=== PATIENT | male | born 1960 | race Caucasian/White ===

== ENCOUNTER 2023-11-06 11:34 | Inpatient (IN) | payer OTHER ==
--- NOTE | 2023-11-06 12:16 | ED ---
General Adult HPI - General Source: patient, EMS, RN notes reviewed Mode of arrival: EMS Limitations: no limitations <Chelsea Funez - Last Filed: 11/06/23 12:58> - General Source: patient, RN notes reviewed Limitations: no limitations <Levy Brar - Last Filed: 11/06/23 16:09> - General Chief complaint: Abdominal Pain Stated complaint: failure to thrive Time Seen by Provider: 11/06/23 12:05 - History of Present Illness Initial comments: Quick Note: This is a 63-year-old male who presents to the emergency department for weakness and failure to thrive. Patient is currently by himself when trying to have a discussion with him and is a very poor historian. When asked why he is here, he states "I cannot walk". Nursing staff reports patient has not been taking medications and has problems with his colostomy bag. (Chelsea Funez) Patient is a 63-year-old male present to emergency department with concerns with weakness. Patient states symptoms have progressed over the past few weeks. Patient states that he is no longer able to walk or take care of himself. Patient does admit to being an alcoholic. Patient still smokes. (Levy Brar) - Related Data Allergies Allergy/AdvReac Type Severity Reaction Status Date / Time No Known Allergies Allergy Verified 11/06/23 11:41 Review of Systems ROS Other: All systems not noted in ROS Statement are negative. <Chelsea Funez - Last Filed: 11/06/23 12:58> ROS Other: All systems not noted in ROS Statement are negative. Constitutional: Denies: fever Eyes: Denies: eye pain ENT: Denies: ear pain Respiratory: Denies: dyspnea Cardiovascular: Denies: chest pain Endocrine: Reports: fatigue Gastrointestinal: Denies: abdominal pain Neurological: Reports: as per HPI, weakness <Levy Brar - Last Filed: 11/06/23 16:09> ROS Statement: Those systems with pertinent positive or pertinent negative responses have been documented in the HPI. Past Medical History Past Medical History: Unable to Obtain Additional Past Medical History / Comment(s): stopped taking all medication History of Any Multi-Drug Resistant Organisms: None Reported Past Surgical History: Unable to Obtain Additional Past Surgical History / Comment(s): colostomy Past Psychological History: No Psychological Hx Reported Smoking Status: Current every day smoker Past Alcohol Use History: Daily, Heavy Past Drug Use History: None Reported <Chelsea Funez - Last Filed: 11/06/23 12:58> General Exam Limitations: no limitations <Chelsea Funez - Last Filed: 11/06/23 12:58> Limitations: no limitations General appearance: alert, in no apparent distress Head exam: Present: normocephalic Eye exam: Present: normal appearance, PERRL, EOMI ENT exam: Present: normal oropharynx Neck exam: Present: normal inspection Respiratory exam: Present: normal lung sounds bilaterally Cardiovascular Exam: Present: regular rate, normal rhythm GI/Abdominal exam: Present: soft. Absent: tenderness Extremities exam: Present: normal inspection Neurological exam: Present: alert Expanded Neurological exam: Present: protecting the airway Patient oriented to: Present: person. Absent: place, time Speech: Present: fluid speech Motor strength exam: RUE: 5, LUE: 5, RLE: 4, LLE: 4 Eye Response: (4) open spontaneously Motor Response: (6) obeys commands Verbal Response: (4) confused conversation Psychiatric exam: Present: normal affect, normal mood Skin exam: Present: normal color <Levy Brar Last Filed: 11/06/23 16:09> - General Exam Comments Initial Comments: Visual Physical Exam Vital signs reviewed General: Well-appearing, nontoxic, no acute distress. Head: Normocephalic, atraumatic Eyes: PERRLA, EOMI ENT: Airway patent Chest: Nonlabored breathing Skin: No visual rash, normal skin tone Neuro: Alert and oriented 3 Musculoskeletal: No gross abnormalities (Chelsea Funez) Course Vital Signs 11/06/23 11:36 Temperature 98.4 F Pulse Rate 102 H Respiratory 18 Rate Blood Pressure 125/72 O2 Sat by Pulse 92 L Oximetry EKG Findings - EKG Results: EKG: interpreted by ERMD (Left axis inferior and septal Q waves.), sinus rhythm, normal ST/T <Levy Brar Filed: 11/06/23 16:09> Medical Decision Making <Chelsea Funez - Last Filed: 11/06/23 12:58> - Lab Data Result diagrams: 11/06/23 13:21 11/06/23 14:44 <Levy Brar Filed: 11/06/23 16:09> - Medical Decision Making I performed the QuickNote portion of this chart. Signed Chelsea Funez PA-C. (Chelsea Funez) Was pt. sent in by a medical professional or institution ([facility] [address], [facility], urgent care, hospital, or snf...) When possible be specific @ -No Did you speak to anyone other than the patient for history (EMS, parent, family, police, friend...)? What history was obtained from this source @ -No Did you review nursing and triage notes (agree or disagree)? Why? @ -I reviewed and agree with nursing and triage notes Were old charts reviewed (outside hosp., previous admission, EMS record, old EKG, old radiological studies, urgent care reports/EKG's, snf records)? Report findings @ -No old charts were reviewed Differential Diagnosis (chest pain, altered mental status, abdominal pain women, abdominal pain men, vaginal bleeding, weakness, fever, dyspnea, syncope, headache, dizziness, GI bleed, back pain, seizure, CVA, palpatations, mental health, musculoskeletal)? @ -Differential Weakness: Hypoglycemia, shock, sepsis, hyponatremia, anemia, infection, [place], ETOH, adverse medicine reaction, overdose, stroke, this is not meant to be an all-inclusive list. EKG interpreted by me (3pts min.). @ -As above X-rays interpreted by me (1pt min.). @ -Chest x-ray with possible tiny left pleural effusion CT interpreted by me (1pt min.). @ -CT brain without acute abnormality U/S interpreted by me (1pt. min.). @ -None done What testing was considered but not performed or refused? (CT, X-rays, U/S, labs)? Why? @ -None What meds were considered but not given or refused? Why? @ -None Did you discuss the management of the patient with other professionals (professionals i.e. [facility] [address], [facility], lab, RT, psych nurse, social security benefits interviewer, microarray operations vice president, teacher, transport corps officer, case assistant)? Give summary @ -Case was discussed with Dr. Sellers who will admit covering Dr. Eagle Was smoking cessation discussed for >3mins.? @ -No Was critical care preformed (if so, how long)? @ -No Were there social determinants of health that impacted care today? How? (Homelessness, low income, unemployed, alcoholism, drug addiction, transportation, low edu. Level, literacy, decrease access to med. care, long-term, rehab)? @ -No Was there de-escalation of care discussed even if they declined (Discuss DNR or withdrawal of care, Hospice)? DNR status @ -No What co-morbidities impacted this encounter? (DM, HTN, Smoking, COPD, CAD, Cancer, CVA, ARF, Chemo, Hep., AIDS, mental health diagnosis, sleep apnea, morbid obesity)? @ -History of alcoholism Was patient admitted / discharged? Hospital course, mention meds given and route, prescriptions, significant lab abnormalities, going to OR and other per tinent info. @ -Patient presents with generalized weakness and inability to walk and take care of himself. Patient has hypomagnesemia. Patient will be admitted. Admission orders written. Undiagnosed new problem with uncertain prognosis? @ -No Drug Therapy requiring intensive monitoring for toxicity (Heparin, Nitro, Insulin, Cardizem)? @ -No Were any procedures done? @ -No Diagnosis/symptom? @ -Weakness, hypomagnesemia Acute, or Chronic, or Acute on Chronic? @ -Acute, acute Uncomplicated (without systemic symptoms) or Complicated (systemic symptoms)? @ -Default Side effects of treatment? @ -No Exacerbation, Progression, or Severe Exacerbation? @ -No Poses a threat to life or bodily function? How? (Chest pain, [place], [place], pneumonia, PE, COPD, DKA, ARF, appy, cholecystitis, CVA, Diverticulitis, Homicidal, Suicidal, threat to staff... and all critical care pts) @ -No (Levy Brar) - Lab Data Lab Results 11/06/23 11/06/23 11/06/23 Range/Units 13:21 13:21 13:21 WBC 6.0 (3.8-10.6) k/uL RBC 4.47 (4.30-5.90) m/uL Hgb 14.4 (13.0-17.5) gm/dL Hct 46.8 (39.0-53.0) % MCV 104.8 H (80.0-100.0) fL MCH 32.2 (25.0-35.0) pg MCHC 30.8 L (31.0-37.0) g/dL RDW 17.3 H (11.5-15.5) % Plt Count 165 (150-450) k/uL MPV 8.4 Neutrophils % 59 % Lymphocytes % 28 % Monocytes % 7 % Eosinophils % 2 % Basophils % 1 % Neutrophils # 3.6 (1.3-7.7) k/uL Lymphocytes # 1.7 (1.0-4.8) k/uL Monocytes # 0.4 (0-1.0) k/uL Eosinophils # 0.1 (0-0.7) k/uL Basophils # 0.0 (0-0.2) k/uL Hypochromasia Marked Poikilocytosis Slight Anisocytosis Slight Macrocytosis Moderate PT 13.0 H (10.0-12.5) sec INR 1.2 H (<1.2) APTT 29.0 (22.0-30.0) sec Sodium (137-145) mmol/L Potassium (3.5-5.1) mmol/L Chloride (98-107) mmol/L Carbon Dioxide (22-30) mmol/L Anion Gap mmol/L BUN (9-20) mg/dL Creatinine (0.66-1.25) mg/dL Est GFR (CKD-EPI)AfAm (>60 ml/min/1.73 sqM) Est GFR (CKD-EPI)NonAf (>60 ml/min/1.73 sqM) Glucose (74-99) mg/dL Plasma Lactic Acid Simone 1.7 (0.7-2.0) mmol/L Calcium (8.4-10.2) mg/dL Magnesium (1.6-2.3) mg/dL Total Bilirubin (0.2-1.3) mg/dL AST (17-59) U/L ALT (4-49) U/L Alkaline Phosphatase (38-126) U/L Total Protein (6.3-8.2) g/dL Albumin (3.5-5.0) g/dL Urine Color Urine Appearance (Clear) Urine pH (5.0-8.0) Ur Specific [place] (1.001-1.035) Urine Protein (Negative) Urine Glucose (UA) (Negative) Urine Ketones (Negative) Urine Blood (Negative) Urine Nitrite (Negative) Urine Bilirubin (Negative) Urine Urobilinogen (<2.0) mg/dL Ur Leukocyte Esterase (Negative) Urine WBC (0-5) /hpf Ur Squamous Epith Cells (0-4) /hpf Urine Bacteria (None) /hpf 11/06/23 11/06/23 Range/Units 13:55 14:44 WBC (3.8-10.6) k/uL RBC (4.30-5.90) m/uL Hgb (13.0-17.5) gm/dL Hct (39.0-53.0) % MCV (80.0-100.0) fL MCH (25.0-35.0) pg MCHC (31.0-37.0) g/dL RDW (11.5-15.5) % Plt Count (150-450) k/uL MPV Neutrophils % % Lymphocytes % % Monocytes % % Eosinophils % % Basophils % % Neutrophils # (1.3-7.7) k/uL Lymphocytes # (1.0-4.8) k/uL Monocytes # (0-1.0) k/uL Eosinophils # (0-0.7) k/uL Basophils # (0-0.2) k/uL Hypochromasia Poikilocytosis Anisocytosis Macrocytosis PT (10.0-12.5) sec INR (<1.2) APTT (22.0-30.0) sec Sodium 142 (137-145) mmol/L Potassium 3.3 L (3.5-5.1) mmol/L Chloride 105 (98-107) mmol/L Carbon Dioxide 34 H (22-30) mmol/L Anion Gap 3 mmol/L BUN 17 (9-20) mg/dL Creatinine 0.51 L (0.66-1.25) mg/dL Est GFR (CKD-EPI)AfAm >90 (>60 ml/min/1.73 sqM) Est GFR (CKD-EPI)NonAf >90 (>60 ml/min/1.73 sqM) Glucose 77 (74-99) mg/dL Plasma Lactic Acid Simone (0.7-2.0) mmol/L Calcium 8.1 L (8.4-10.2) mg/dL Magnesium 0.9 L* (1.6-2.3) mg/dL Total Bilirubin 1.0 (0.2-1.3) mg/dL AST 69 H (17-59) U/L ALT 24 (4-49) U/L Alkaline Phosphatase 130 H (38-126) U/L Total Protein 6.6 (6.3-8.2) g/dL Albumin 3.0 L (3.5-5.0) g/dL Urine Color Light Yellow Urine Appearance Cloudy (Clear) Urine pH 6.0 (5.0-8.0) Ur Specific [place] 1.013 (1.001-1.035) Urine Protein Trace H (Negative) Urine Glucose (UA) Negative (Negative) Urine Ketones Negative (Negative) Urine Blood Negative (Negative) Urine Nitrite Positive (Negative) Urine Bilirubin Negative (Negative) Urine Urobilinogen <2.0 (<2.0) mg/dL Ur Leukocyte Esterase Moderate H (Negative) Urine WBC 13 H (0-5) /hpf Ur Squamous Epith Cells 2 (0-4) /hpf Urine Bacteria Rare H (None) /hpf Disposition <Chelsea Funez - Last Filed: 11/06/23 12:58> Is patient prescribed a controlled substance at d/c from ED?: No Time of Disposition: 16:09 <Levy Brar - Last Filed: 11/06/23 16:09> Clinical Impression: Weakness, Hypomagnesemia Disposition: ADMITTED IP TO THIS HOSP Referrals: Zackary Eagle MD [Primary Care Provider] - 1-2 days
[2023-11-06 13:56] LABS: Anisocytosis Slight; Basophils % (A) 1 %; Eosinophils # (A) 0.1 k/uL (0-0.7); Eosinophils % (A) 2 %; HCT 46.8 % (39.0-53.0); HGB 14.4 gm/dL (13.0-17.5); Hypochromasia Marked; Lymphocytes # (A) 1.7 k/uL (1.0-4.8); Lymphocytes % (A) 28 %; MCH 32.2 pg (25.0-35.0); MCHC 30.8 g/dL (31.0-37.0); MCV 104.8 fL (80.0-100.0); Macrocytosis Moderate; Mean Platelet Volume 8.4; Monocytes # (A) 0.4 k/uL (0-1.0); Monocytes % (A) 7 %; Neutrophils # (A) 3.6 k/uL (1.3-7.7); Neutrophils % (A) 59 %; Platelet Count 165 k/uL (150-450); Poikilocytosis Slight; RBC 4.47 m/uL (4.30-5.90); RDW 17.3 % (11.5-15.5)
[2023-11-06 14:12] LABS: Appearance,Urine Cloudy (Clear); Bacteria,Urine Rare /hpf; Bilirubin,Urine Negative (Negative); Blood,Urine Negative (Negative); Color,Urine Light Yellow; Glucose,Urine (UA) Negative (Negative); Ketones,Urine Negative (Negative); Leukocyte Esterase,Urine Moderate (Negative); Nitrite,Urine Positive (Negative); Protein,Urine Trace (Negative); Specific Gravity,Urine 1.013 (1.001-1.035); Squamous Epithelial Cell,Urine 2 /hpf (0-4); Urobilinogen,Urine <2.0 mg/dL (<2.0); WBC,Urine 13 /hpf (0-5)
[2023-11-06 14:20] LABS: INR 1.2 (<1.2)
[2023-11-06 15:00] LABS: ALT 24 U/L (4-49); AST 69 U/L (17-59); African American GFR (CKD) >90 (>60 ml/min/1.73 sqM); Alkaline Phosphatase 130 U/L (38-126); Anion Gap 3 mmol/L; Blood Urea Nitrogen 17 mg/dL (9-20); Calcium 8.1 mg/dL (8.4-10.2); Carbon Dioxide 34 mmol/L (22-30); Chloride 105 mmol/L (98-107); Glucose 77 mg/dL (74-99); Non-African American GFR(CKD) >90 (>60 ml/min/1.73 sqM); Potassium 3.3 mmol/L (3.5-5.1); Sodium 142 mmol/L (137-145); Total Protein 6.6 g/dL (6.3-8.2)
[2023-11-06 15:15] LABS: Magnesium 0.9 mg/dL (1.6-2.3)
--- NOTE | 2023-11-06 15:34 | CT ---
EXAMINATION TYPE: CT brain wo con DATE OF EXAM: 11/06/2023 COMPARISON: None INDICATION: Weakness, failure to thrive DLP: 1185.4 mGycm, Automated exposure control for dose reduction was used. CONTRAST: None CT of the brain is performed utilizing 3 mm thick sections through the posterior fossa and 3 mm thick sections through the remaining calvarium. Study is performed within 24 hours of arrival to the hosp ital. No abnormal hyperdensity is present to suggest an acute intracranial hemorrhage. No mass lesion is evident. No acute infarcts are evident. Ventricles and sulci are appropriate for the patient age. Paranasal sinuses and mastoid air cells within the [id number] are clear. IMPRESSION: 1. No acute intracranial process. Follow up MRI can be performed as clinically indicated. [facility], , 11/06/2023 3:32 PM
--- NOTE | 2023-11-06 15:45 | XR ---
EXAMINATION TYPE: XR chest 2V DATE OF EXAM: 11/06/2023 COMPARISON: None INDICATION: Weakness TECHNIQUE: Frontal and lateral views of the chest are obtained. FINDINGS: The heart size is normal. The pulmonary vasculature is normal. Small left pleural effusion is present. Lungs otherwise appear clear.. IMPRESSION: 1. Small left posterior pleural effusion [facility], Workstation: [facility], 11/06/2023 3:43 PM
[2023-11-06] MEDS: MAGNESIUM OXIDE 400 MG TAB PO STA (15:53)
[2023-11-06] MEDS: MAGNESIUM SULFATE-D5W PMX 1 GM in DEXTROSE/WATER 1 100ML.BAG IVPB SCH ×2 (15:53→19:46)
[2023-11-06] MEDS ORDERED: LORazepam 1 MG TAB PO PRN ×2 (16:06)
[2023-11-06] MEDS ORDERED: NALOXONE 0.4 MG/ML 1 ML VIAL IV PRN (16:09)
[2023-11-06] MEDS ORDERED: SODIUM CHLORIDE 0.9% 1,000 ML IV SCH (16:15)
--- NOTE | 2023-11-06 16:20 | P.HPIM ---
History of Present Illness H&P Date: 11/06/23 Chief Complaint: "I cannot walk" Patient is a 63-year-old male with a past medical history of ostomy that he states he has had since he was a chile and he does not know the reason as to why he has it, alcohol abuse drinks 1/5 of vodka every day who presents to the ED because he is not able to walk. Patient states that he has been getting progressively weaker over the past few months and today he was not able to walk. Patient states that his used to take care of him but she . Now his brother lives with him and helps to take care of him. Patient states that he has not taken a shower in a long time. He states he changes his ostomy by himself. Patient states that he has not seen a doctor in a long time and he also does not take any medications. Patient in the ED was found to have a potassium of 3.3, magnesium 0.9. ED ordered 2 g of magnesium sulfate. Patient then referred for admission. ROS: 10 ROS reviewed and are negative except as noted in HPI Physical exam General: [Alert and oriented, disheveled and appears malnourished and patient covered with stools]. Eye: [PERRL, EOMI, normal conjunctiva]. HENT: [Normocephalic, clear tympanic membranes, normal hearing, dry oral mucosa, no scleral icterus, no sinus tenderness]. Neck: [Supple, non-tender, no carotid bruits, no JVD, no lymphadenopathy]. Lungs: [Clear to auscultation and percussion, non-labored respiration]. Heart: [Normal rate, regular rhythm, no murmur, gallop +3 pitting edema bilateral lower extremities]. Abdomen: [Soft, non-tender, non-distended, normal bowel sounds, no masses, ostomy bag surrounded by brown-colored pasty stool]. Musculoskeletal: Bilateral lower extremity strength 3 out of 5. Neurologic: [Awake, alert, and oriented X3, CN II-XII intact]. Psychiatric: [Cooperative, flat affect]. Assessment and plan Bilateral lower extremity weakness likely due to hypomagnesemia Hypomagnesemia secondary to alcohol abuse Patient given 2 g of magnesium sulfate in the ED will order for another 4 g of magnesium sulfate PT OT consult Mild hypokalemia Potassium 3.3 will order for 40 mg of potassium chloride Alcohol abuse High risk for DTs and alcohol withdrawal Will start the patient on CIWA protocol Mildly elevated transaminitis Secondary to alcohol abuse Lower extremity edema I suspect this is due to hypoalbuminemia Encourage patient to eat more History of ostomy Patient is not sure why he has an ostomy. He states that he has had it since he was a child. DVT prophylaxis: Subcu heparin Past Medical History Past Medical History: Unable to Obtain Additional Past Medical History / Comment(s): stopped taking all medication History of Any Multi-Drug Resistant Organisms: None Reported Past Surgical History: Unable to Obtain Additional Past Surgical History / Comment(s): colostomy Past Psychological History: No Psychological Hx Reported Smoking Status: Current every day smoker Past Alcohol Use History: Daily, Heavy Past Drug Use History: None Reported Medications and Allergies Allergies Allergy/AdvReac Type Severity Reaction Status Date / Time No Known Allergies Allergy Verified 11/06/23 11:41 Physical Exam Osteopathic Statement: *. No significant issues noted on an osteopathic structural exam other than those noted in the History and Physical/Consult. Vitals: Vital Signs Temp Pulse Resp BP Pulse Ox 11/06/23 11:36 98.4 F 102 H 18 125/72 92 L Intake and Output 11/06/23 11/06/23 11/06/23 06:59 14:59 22:59 Other: Weight 81.647 kg Results CBC & Chem 7: 11/06/23 13:21 11/06/23 14:44 Labs: Abnormal Lab Results - Last 24 Hours (Table) 11/06/23 11/06/23 11/06/23 Range/Units 13:21 13:21 13:55 MCV 104.8 H (80.0-100.0) fL MCHC 30.8 L (31.0-37.0) g/dL RDW 17.3 H (11.5-15.5) % PT 13.0 H (10.0-12.5) sec INR 1.2 H (<1.2) Potassium (3.5-5.1) mmol/L Carbon Dioxide (22-30) mmol/L Creatinine (0.66-1.25) mg/dL Calcium (8.4-10.2) mg/dL Magnesium (1.6-2.3) mg/dL AST (17-59) U/L Alkaline Phosphatase (38-126) U/L Albumin (3.5-5.0) g/dL Urine Protein Trace H (Negative) Ur Leukocyte Esterase Moderate H (Negative) Urine WBC 13 H (0-5) /hpf Urine Bacteria Rare H (None) /hpf 11/06/23 Range/Units 14:44 MCV (80.0-100.0) fL MCHC (31.0-37.0) g/dL RDW (11.5-15.5) % PT (10.0-12.5) sec INR (<1.2) Potassium 3.3 L (3.5-5.1) mmol/L Carbon Dioxide 34 H (22-30) mmol/L Creatinine 0.51 L (0.66-1.25) mg/dL Calcium 8.1 L (8.4-10.2) mg/dL Magnesium 0.9 L* (1.6-2.3) mg/dL AST 69 H (17-59) U/L Alkaline Phosphatase 130 H (38-126) U/L Albumin 3.0 L (3.5-5.0) g/dL Urine Protein (Negative) Ur Leukocyte Esterase (Negative) Urine WBC (0-5) /hpf Urine Bacteria (None) /hpf
[2023-11-06] MEDS: POTASSIUM CHLORIDE ER 20 MEQ TAB.ER PO STA (17:15)
[2023-11-06] MEDS: LORazepam 1 MG TAB PO PRN (22:32)
[2023-11-07 08:31] LABS: Basophils # (A) 0.03 X 10*3/uL (0.00-0.10); Basophils % (A) 0.5 %; Eosinophils # (A) 0.08 X 10*3/uL (0.04-0.35); Eosinophils % (A) 1.3 %; HGB 12.5 g/dL (13.0-17.0); Lymphocytes # (A) 2.01 X 10*3/uL (0.90-5.00); Lymphocytes % (A) 31.8 %; MCH 31.8 pg (27.0-32.0); MCHC 31.3 g/dL (32.0-37.0); MCV 101.8 FL (80.0-97.0); Mean Platelet Volume 11.2 FL (9.5-12.2); Monocytes % (A) 9.5 %; NRBC Per 100 WBC 0 X 10*3/uL (0.00-0.01); Neutrophils # (A) 3.58 X 10*3/uL (1.80-7.70); Neutrophils % (A) 56.4 %; Platelet Count 146 X 10*3/uL (140-440); RBC 3.93 X 10*6/uL (4.40-5.60); RDW 17.9 % (11.5-14.5); WBC 6.33 X 10*3/uL (4.50-10.00)
[2023-11-07 09:05] LABS: ALT 18 U/L (10-49); AST 57 U/L (14-35); Albumin 2.7 g/dL (3.8-4.9); Albumin/Globulin Ratio 0.84 Ratio (1.60-3.17); Alkaline Phosphatase 122 U/L (41-126); Blood Urea Nitrogen 12.6 mg/dL (9.0-27.0); Calcium 8.2 mg/dL (8.7-10.3); Carbon Dioxide 29.1 mmol/L (21.6-31.8); Chloride 100 mmol/L (96-109); Globulin 3.2 g/dL (1.6-3.3); Glucose 85 mg/dL (70-110); Magnesium 1.9 mg/dL (1.5-2.4); Phosphorus 2.4 mg/dL (2.4-5.1); Potassium 3.4 mmol/L (3.5-5.5); Sodium 139 mmol/L (135-145); Total Protein 5.9 g/dL (6.2-8.2)
[2023-11-07] MEDS: ENOXAPARIN 40 MG/0.4 ML SYRINGE SQ SCH (09:07)
--- NOTE | 2023-11-07 13:33 | P.PN ---
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 Patient states that he has been getting progressively weaker over the past few months and today he was not able to walk. Patient states that his used to take care of him but she . Now his brother lives with him and helps to take care of him. Patient states that he has not taken a shower in a long time. He states he changes his ostomy by himself. Patient states that he has not seen a doctor in a long time and he al so does not take any medications. Patient in the ED was found to have a potassium of 3.3, magnesium 0.9. ED ordered 2 g of magnesium sulfate. Patient then referred for admission. Patient seen this morning. He states that he was able to stand up. He states that he is feeling stronger today compared to yesterday. Physical exam General: [Alert and oriented, disheveled and appears malnourished and patient covered with stools]. Eye: [PERRL, EOMI, normal conjunctiva]. HENT: [Normocephalic, clear tympanic membranes, normal hearing, dry oral mucosa, no scleral icterus, no sinus tenderness]. Neck: [Supple, non-tender, no carotid bruits, no JVD, no lymphadenopathy]. Lungs: [Clear to auscultation and percussion, non-labored respiration]. Heart: [Normal rate, regular rhythm, no murmur, gallop +3 pitting edema bilateral lower extremities]. Abdomen: [Soft, non-tender, non-distended, normal bowel sounds, no masses, ostomy bag surrounded by brown-colored pasty stool]. Musculoskeletal: Bilateral lower extremity strength 3 out of 5. Neurologic: [Awake, alert, and oriented X3, CN II-XII intact]. Psychiatric: [Cooperative, flat affect]. Assessment and plan Bilateral lower extremity weakness likely due to hypomagnesemia Hypomagnesemia secondary to alcohol abuse Improving after repletion of the magnesium sulfate Will give another 2 g of magnesium sulfate PT OT consult Mild hypokalemia Potassium this morning 3.4 will give another 40 mg of potassium chloride Alcohol abuse High risk for DTs and alcohol withdrawal Will start the patient on CIWA protocol Patient only required 2 mg of Ativan in the past 24 hours No signs of withdrawal this morning Mildly elevated transaminitis Secondary to alcohol abuse Improving Lower extremity edema I suspect this is due to hypoalbuminemia Encourage patient to eat more History of ostomy Concern for ostomy prolapse Will consult general surgery DVT prophylaxis: Subcu heparin Objective - Vital Signs Vital signs: Vital Signs Temp 98.7 F 11/07/23 07:50 Pulse 104 H 11/07/23 11:58 Resp 18 11/07/23 11:58 BP 119/69 11/07/23 07:50 Pulse Ox 91 L 11/07/23 07:50 FiO2 Intake & Output 11/06/23 11/07/23 11/07/23 18:59 06:59 18:59 Weight 81.647 kg 81.647 kg Other: Voiding Method Urinal # Voids 3 - Labs CBC & Chem 7: 11/07/23 03:27 11/07/23 03:27 Labs: Abnormal Lab Results - Last 24 Hours (Table) 11/06/23 11/06/23 11/06/23 Range/Units 13:21 13:21 13:55 RBC (4.40-5.60) X 10*6/uL Hgb (13.0-17.0) g/dL MCV 104.8 H (80.0-100.0) fL MCHC 30.8 L (31.0-37.0) g/dL RDW 17.3 H (11.5-15.5) % PT 13.0 H (10.0-12.5) sec INR 1.2 H (<1.2) Potassium (3.5-5.1) mmol/L Carbon Dioxide (22-30) mmol/L Creatinine (0.66-1.25) mg/dL BUN/Creatinine Ratio (12.00-20.00) Ratio Calcium (8.4-10.2) mg/dL Magnesium (1.6-2.3) mg/dL AST (17-59) U/L Alkaline Phosphatase (38-126) U/L Total Protein (6.2-8.2) g/dL Albumin (3.5-5.0) g/dL Albumin/Globulin Ratio (1.60-3.17) Ratio Urine Protein Trace H (Negative) Ur Leukocyte Esterase Moderate H (Negative) Urine WBC 13 H (0-5) /hpf Urine Bacteria Rare H (None) /hpf 11/06/23 11/07/23 11/07/23 Range/Units 14:44 03:27 03:27 RBC 3.93 L (4.40-5.60) X 10*6/uL Hgb 12.5 L (13.0-17.0) g/dL MCV 101.8 H (80.0-100.0) fL MCHC 31.3 L (31.0-37.0) g/dL RDW 17.9 H (11.5-15.5) % PT (10.0-12.5) sec INR (<1.2) Potassium 3.3 L 3.4 L (3.5-5.1) mmol/L Carbon Dioxide 34 H (22-30) mmol/L Creatinine 0.51 L 0.5 L (0.66-1.25) mg/dL BUN/Creatinine Ratio 25.20 H (12.00-20.00) Ratio Calcium 8.1 L 8.2 L (8.4-10.2) mg/dL Magnesium 0.9 L* (1.6-2.3) mg/dL AST 69 H 57 H (17-59) U/L Alkaline Phosphatase 130 H (38-126) U/L Total Protein 5.9 L (6.2-8.2) g/dL Albumin 3.0 L 2.7 L (3.5-5.0) g/dL Albumin/Globulin Ratio 0.84 L (1.60-3.17) Ratio Urine Protein (Negative) Ur Leukocyte Esterase (Negative) Urine WBC (0-5) /hpf Urine Bacteria (None) /hpf
[2023-11-07] MEDS: POTASSIUM CHLORIDE ER 20 MEQ TAB.ER PO STA (14:08)
[2023-11-07] MEDS: MAGNESIUM SULFATE-D5W PMX 1 GM in DEXTROSE/WATER 1 100ML.BAG IVPB SCH (14:08)
--- NOTE | 2023-11-07 14:23 | P.GSCN ---
History of Present Illness Consult date: 11/07/23 History of present illness: CHIEF COMPLAINT: Weakness HISTORY OF PRESENT ILLNESS: This is a 63-year-old male who presented the hospital with weakness, difficulty walking and taking care of himself. He is a poor historian. Patient apparently has history of alcohol and nicotine abuse. Information was taken from nursing staff who talked with patient's brother. 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 His ostomy is functioning. And apparently there had been discussion of having a surgical repair for the prolapsed colostomy however, the previous surgeon wanted patient to quit smoking and drinking before proceeding with any surgery. Patient denies any abdominal pain. Denies any nausea or vomiting. Patient seen and examined with Dr. Shay PAST MEDICAL HISTORY: See below PAST SURGICAL HISTORY: See below MEDICATIONS: See below ALLERGIES: See below SOCIAL HISTORY: No illicit drug use. Heavy daily alcohol use. Nicotine dependence REVIEW OF SYSTEMS: CONSTITUTIONAL: Denies fever or chills. HEENT: Denies blurred vision, vision changes, or eye pain. Denies hemoptysis CARDIOVASCULAR: Denies chest pain or pressure. RESPIRATORY: No shortness of breath. GASTROINTESTINAL: See HPI for pertinent findings HEMATOLOGIC: Denies bleeding disorders. GENITOURINARY: Denies any blood in urine or increased urinary frequency. SKIN: Denies pruitis. Denies rash. PHYSICAL EXAM: VITAL SIGNS: Reviewed GENERAL: no acute distress. ABDOMEN: Soft. Nondistended. Prolapsed ostomy about 7 inches. Stool present in colostomy bag NEUROLOGIC: Confused LABORATORY DATA: WBC 6.8 Hgb 12.5 plt 146 Sodium 139 potassium 3.40 creatinine 0.5 Magnesium 0.9 up to 1.9 IMAGING: Brain CT negative ASSESSMENT: 1. Prolapsed ostomy 2. Daily alcohol use 3. Hypomagnesemia and hypokalemia PLAN: -Surgical repair of prolapsed ostomy when medically stable -Continue to correct electrolytes -Okay for regular diet Physician Director Of Strategic Sourcing note has been reviewed by physician. Signing provider agrees with the documented findings, assessment, and plan of care. Past Medical History Past Medical History: Unable to Obtain Additional Past Medical History / Comment(s): stopped taking all medication, pt stated that he has been drinking alcohol since age 13. Pt drinks a 5th or more per day. History of Any Multi-Drug Resistant Organisms: None Reported Past Surgical History: Unable to Obtain Additional Past Surgical History / Comment(s): colostomy Past Psychological History: No Psychological Hx Reported Smoking Status: Current every day smoker Past Alcohol Use History: Daily, Heavy Past Drug Use History: None Reported Medications and Allergies Home Medications Medication Instructions Recorded Confirmed Type No Known Home Medications 11/06/23 11/06/23 History Allergies Allergy/AdvReac Type Severity Reaction Status Date / Time No Known Allergies Allergy Verified 11/06/23 16:40 Surgical - Exam Vital Signs Temp Pulse Resp BP Pulse Ox 98.4 F 102 H 18 125/72 92 L 11/06/23 11:36 11/06/23 11:36 11/06/23 11:36 11/06/23 11:36 11/06/23 11:36 Results - Labs 11/07/23 03:27 11/07/23 03:27 Abnormal Lab Results - Last 24 Hours (Table) 11/06/23 11/06/23 11/06/23 Range/Units 13:21 13:55 14:44 RBC (4.40-5.60) X 10*6/uL Hgb (13.0-17.0) g/dL MCV (80.0-97.0) FL MCHC (32.0-37.0) g/dL RDW (11.5-14.5) % PT 13.0 H (10.0-12.5) sec INR 1.2 H (<1.2) Potassium 3.3 L (3.5-5.1) mmol/L Carbon Dioxide 34 H (22-30) mmol/L Creatinine 0.51 L (0.66-1.25) mg/dL BUN/Creatinine Ratio (12.00-20.00) Ratio Calcium 8.1 L (8.4-10.2) mg/dL Magnesium 0.9 L* (1.6-2.3) mg/dL AST 69 H (17-59) U/L Alkaline Phosphatase 130 H (38-126) U/L Total Protein (6.2-8.2) g/dL Albumin 3.0 L (3.5-5.0) g/dL Albumin/Globulin Ratio (1.60-3.17) Ratio Urine Protein Trace H (Negative) Ur Leukocyte Esterase Moderate H (Negative) Urine WBC 13 H (0-5) /hpf Urine Bacteria Rare H (None) /hpf 11/07/23 11/07/23 Range/Units 03:27 03:27 RBC 3.93 L (4.40-5.60) X 10*6/uL Hgb 12.5 L (13.0-17.0) g/dL MCV 101.8 H (80.0-97.0) FL MCHC 31.3 L (32.0-37.0) g/dL RDW 17.9 H (11.5-14.5) % PT (10.0-12.5) sec INR (<1.2) Potassium 3.4 L (3.5-5.1) mmol/L Carbon Dioxide (22-30) mmol/L Creatinine 0.5 L (0.66-1.25) mg/dL BUN/Creatinine Ratio 25.20 H (12.00-20.00) Ratio Calcium 8.2 L (8.4-10.2) mg/dL Magnesium (1.6-2.3) mg/dL AST 57 H (17-59) U/L Alkaline Phosphatase (38-126) U/L Total Protein 5.9 L (6.2-8.2) g/dL Albumin 2.7 L (3.5-5.0) g/dL Albumin/Globulin Ratio 0.84 L (1.60-3.17) Ratio Urine Protein (Negative) Ur Leukocyte Esterase (Negative) Urine WBC (0-5) /hpf Urine Bacteria (None) /hpf Diabetes panel 11/06/23 11/07/23 Range/Units 14:44 03:27 Sodium 142 139 (137-145) mmol/L Potassium 3.3 L 3.4 L (3.5-5.1) mmol/L Chloride 105 100 (98-107) mmol/L Carbon Dioxide 34 H 29.1 (22-30) mmol/L BUN 17 12.6 (9-20) mg/dL Creatinine 0.51 L 0.5 L (0.66-1.25) mg/dL Glucose 77 85 (74-99) mg/dL Calcium 8.1 L 8.2 L (8.4-10.2) mg/dL AST 69 H 57 H (17-59) U/L ALT 24 18 (4-49) U/L Alkaline Phosphatase 130 H 122 (38-126) U/L Total Protein 6.6 5.9 L (6.3-8.2) g/dL Albumin 3.0 L 2.7 L (3.5-5.0) g/dL Calcium panel 11/06/23 11/07/23 Range/Units 14:44 03:27 Calcium 8.1 L 8.2 L (8.4-10.2) mg/dL Phosphorus 2.4 (2.4-5.1) mg/dL Albumin 3.0 L 2.7 L (3.5-5.0) g/dL Pituitary panel 11/06/23 11/07/23 Range/Units 14:44 03:27 Sodium 142 139 (137-145) mmol/L Potassium 3.3 L 3.4 L (3.5-5.1) mmol/L Chloride 105 100 (98-107) mmol/L Carbon Dioxide 34 H 29.1 (22-30) mmol/L BUN 17 12.6 (9-20) mg/dL Creatinine 0.51 L 0.5 L (0.66-1.25) mg/dL Glucose 77 85 (74-99) mg/dL Calcium 8.1 L 8.2 L (8.4-10.2) mg/dL Adrenal panel 11/06/23 11/07/23 Range/Units 14:44 03:27 Sodium 142 139 (137-145) mmol/L Potassium 3.3 L 3.4 L (3.5-5.1) mmol/L Chloride 105 100 (98-107) mmol/L Carbon Dioxide 34 H 29.1 (22-30) mmol/L BUN 17 12.6 (9-20) mg/dL Creatinine 0.51 L 0.5 L (0.66-1.25) mg/dL Glucose 77 85 (74-99) mg/dL Calcium 8.1 L 8.2 L (8.4-10.2) mg/dL Total Bilirubin 1.0 1.0 (0.2-1.3) mg/dL AST 69 H 57 H (17-59) U/L ALT 24 18 (4-49) U/L Alkaline Phosphatase 130 H 122 (38-126) U/L Total Protein 6.6 5.9 L (6.3-8.2) g/dL Albumin 3.0 L 2.7 L (3.5-5.0) g/dL
[2023-11-08 08:33] LABS: Blood Urea Nitrogen 7.8 mg/dL (9.0-27.0); Calcium 8.1 mg/dL (8.7-10.3); Carbon Dioxide 28.3 mmol/L (21.6-31.8); Chloride 100 mmol/L (96-109); Glucose 78 mg/dL (70-110); Magnesium 1.4 mg/dL (1.5-2.4); Potassium 3.3 mmol/L (3.5-5.5); Sodium 138 mmol/L (135-145)
[2023-11-08] MEDS: ACETAMINOPHEN TAB 325 MG TAB PO PRN (08:41)
[2023-11-08] MEDS: POTASSIUM CHLORIDE ER 20 MEQ TAB.ER PO SCH (11:20)
[2023-11-08] MEDS: MAGNESIUM SULFATE-D5W PMX 1 GM in DEXTROSE/WATER 1 100ML.BAG IVPB SCH (11:21)
[2023-11-08] MEDS: MAGNESIUM OXIDE 400 MG TAB PO SCH (11:21)
--- NOTE | 2023-11-08 12:17 | P.PN ---
Subjective Progress Note Date: 11/08/23 CHIEF COMPLAINT: Weakness and hypomagnesemia. HISTORY OF PRESENT ILLNESS: Surgical service following in regards to prolapsed ostomy. Patient denies any abdominal pain. Ostomy is functioning. Afebrile. WBC 6.3 potassium 3.3 magnesium 1.4 PHYSICAL EXAM: VITAL SIGNS: Reviewed. GENERAL: no acute distress. ABDOMEN: Soft. Nondistended. Nontender. Prolapsed ostomy is little less than yesterday it out about 5 inches. Liquidy stool present. NEUROLOGIC: Alert and oriented. Cranial nerves II through XII grossly intact. ASSESSMENT: 1. Prolapsed ostomy 2. Daily alcohol use 3. Hypomagnesemia and hypokalemia PLAN: -Will plan for revision of colostomy on 11/12/[address] Shay -Continue to medically optimize patient -Continue to correct electrolytes -Continue regular diet Physician Assembly Lead Person note has been reviewed by physician. Signing provider agrees with the documented findings, assessment, and plan of care. Objective - Vital Signs Vital signs: Vital Signs Temp 97.6 F 11/08/23 07:00 Pulse 98 11/08/23 11:51 Resp 20 11/08/23 11:51 BP 141/79 11/08/23 07:00 Pulse Ox 85 L 11/08/23 11:51 FiO2 Intake & Output 11/07/23 11/08/23 11/08/23 18:59 06:59 18:59 Intake Total 200 Output Total 350 400 Balance -350 -200 Intake: Oral 200 Output: Urine 350 400 Other: Voiding Method Urinal # Voids 6 # Bowel Movements 1 - Labs CBC & Chem 7: 11/07/23 03:27 11/08/23 03:52 Labs: Abnormal Lab Results - Last 24 Hours (Table) 11/08/23 Range/Units 03:52 Potassium 3.3 L (3.5-5.5) mmol/L BUN 7.8 L (9.0-27.0) mg/dL Creatinine 0.5 L (0.6-1.5) mg/dL Calcium 8.1 L (8.7-10.3) mg/dL Magnesium 1.4 L (1.5-2.4) mg/dL
[2023-11-08] MEDS: POTASSIUM CHLORIDE ER 20 MEQ TAB.ER PO STA (12:54)
--- NOTE | 2023-11-08 13:21 | P.PN ---
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 Patient states that he has been getting progressively weaker over the past few months and today he was not able to walk. Patient states that his used to take care of him but she . Now his brother lives with him and helps to take care of him. Patient states that he has not taken a shower in a long time. He states he changes his ostomy by himself. Patient states that he has not seen a doctor in a long time and he al so does not take any medications. Patient in the ED was found to have a potassium of 3.3, magnesium 0.9. ED ordered 2 g of magnesium sulfate. Patient then referred for admission. Patient worked with physical therapy who are recommending [facility] facility. Patient was also seen by general surgery for prolapse of his colostomy. Surgery is planning on doing surgery on 11/12/2023. Patient seen this morning. He is denying any acute complaints. I discussed with the patient about going to [facility] facility and he is amenable. 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 I ordered for 4 g of magnesium sulfate IV and also started patient on 400 mg magnesium oxide p.o. twice daily. Trend magnesium level Mild hypokalemia Patient's potassium this morning is 3.3. I ordered for a total of 80 mill equivalents of potassium chloride. Trend BMP Alcohol abuse High risk for DTs and alcohol withdrawal Will start the patient on CIWA protocol Patient has not required any Ativan in the past 24 hours Will consider stopping CIWA protocol if patient does not receive further Ativan. Mildly elevated transaminitis Secondary to alcohol abuse Improving Lower extremity edema I suspect this is due to hypoalbuminemia Encourage patient to eat more Will hold off on any diuretics due to electrolyte abnormalities History of colostomy with ostomy prolapse I discussed with general surgery who said they plan on doing the surgery on Sunday and would want to the patient surgery inpatient since he is likely not going to return outpatient for the surgery. Patient is moderate risk for surgery. DVT prophylaxis: Subcu heparin Objective - Vital Signs Vital signs: Vital Signs Temp 97.6 F 11/08/23 07:00 Pulse 98 11/08/23 11:51 Resp 20 11/08/23 11:51 BP 141/79 11/08/23 07:00 Pulse Ox 85 L 11/08/23 11:51 FiO2 Intake & Output 11/07/23 11/08/23 11/08/23 18:59 06:59 18:59 Intake Total 200 Output Total 350 400 Balance -350 -200 Intake: Oral 200 Output: Urine 350 400 Other: Voiding Method Urinal # Voids 6 # Bowel Movements 1 - Labs CBC & Chem 7: 11/07/23 03:27 11/08/23 03:52 Labs: Abnormal Lab Results - Last 24 Hours (Table) 11/08/23 Range/Units 03:52 Potassium 3.3 L (3.5-5.5) mmol/L BUN 7.8 L (9.0-27.0) mg/dL Creatinine 0.5 L (0.6-1.5) mg/dL Calcium 8.1 L (8.7-10.3) mg/dL Magnesium 1.4 L (1.5-2.4) mg/dL
[2023-11-08] MEDS: LORazepam 0.5 MG TAB PO PRN (21:59)
[2023-11-09 08:46] LABS: HCT 42.5 % (39.6-50.0); MCH 30.8 pg (27.0-32.0); MCHC 30.6 g/dL (32.0-37.0); MCV 100.7 FL (80.0-97.0); Mean Platelet Volume 11.3 FL (9.5-12.2); NRBC Per 100 WBC 0 X 10*3/uL (0.00-0.01); Platelet Count 142 X 10*3/uL (140-440); RBC 4.22 X 10*6/uL (4.40-5.60); RDW 17.5 % (11.5-14.5); WBC 7.04 X 10*3/uL (4.50-10.00)
[2023-11-09 08:47] LABS: Blood Urea Nitrogen 5.5 mg/dL (9.0-27.0); Carbon Dioxide 33.8 mmol/L (21.6-31.8); Chloride 99 mmol/L (96-109); Glucose 81 mg/dL (70-110); Magnesium 1.3 mg/dL (1.5-2.4); Potassium 3.7 mmol/L (3.5-5.5); Sodium 140 mmol/L (135-145)
[2023-11-09 08:48] LABS: ALT 21 U/L (10-49); AST 56 U/L (14-35); Albumin 2.9 g/dL (3.8-4.9); Albumin/Globulin Ratio 0.85 Ratio (1.60-3.17); Alkaline Phosphatase 128 U/L (41-126); Calcium 8.4 mg/dL (8.7-10.3); Globulin 3.4 g/dL (1.6-3.3); Total Bilirubin 1.1 mg/dL (0.3-1.2); Total Protein 6.3 g/dL (6.2-8.2)
[2023-11-09] MEDS: MAGNESIUM SULFATE-D5W PMX 1 GM in DEXTROSE/WATER 1 100ML.BAG IVPB SCH (11:08)
[2023-11-09] MEDS: POTASSIUM CHLORIDE ER 20 MEQ TAB.ER PO SCH (11:09)
--- NOTE | 2023-11-09 11:45 | P.PN ---
Subjective Progress Note Date: 11/09/23 CHIEF COMPLAINT: Weakness and hypomagnesemia. HISTORY OF PRESENT ILLNESS: Surgical service following in regards to prolapsed ostomy. Patient denies any abdominal pain. Ostomy is functioning. Afebrile. WBC 6.3 potassium 3.7 magnesium 1.3 PHYSICAL EXAM: VITAL SIGNS: Reviewed. GENERAL: no acute distress. ABDOMEN: Soft. Nondistended. Nontender. Prolapsed ostomy is out about 7 inches. Liquidy stool present. NEUROLOGIC: awake and alert. confused ASSESSMENT: 1. Prolapsed ostomy 2. Daily alcohol use 3. Hypomagnesemia and hypokalemia PLAN: -Will plan for revision of colostomy on 11/12/[address] Shay -Continue to medically optimize patient -Continue to correct electrolytes -Continue regular diet Physician Cnc Lathe Machinist note has been reviewed by physician. Signing provider agrees with the documented findings, assessment, and plan of care. Objective - Vital Signs Vital signs: Vital Signs Temp 98.4 F 11/09/23 07:27 Pulse 96 11/09/23 08:00 Resp 15 11/09/23 08:00 BP 137/77 11/09/23 07:27 Pulse Ox 90 L 11/09/23 07:27 FiO2 Intake & Output 11/08/23 11/09/23 11/09/23 18:59 06:59 18:59 Intake Total 200 1620 Output Total 400 1250 650 Balance -200 370 -650 Intake: Oral 200 1620 Output: Urine 400 1250 650 Other: Voiding Method Urinal Toilet Toilet Urinal Urinal # Voids 2 2 # Bowel Movements 1 - Labs CBC & Chem 7: 11/09/23 05:42 11/09/23 05:42 Labs: Abnormal Lab Results - Last 24 Hours (Table) 11/09/23 11/09/23 Range/Units 05:42 05:42 RBC 4.22 L (4.40-5.60) X 10*6/uL MCV 100.7 H (80.0-97.0) FL MCHC 30.6 L (32.0-37.0) g/dL RDW 17.5 H (11.5-14.5) % Carbon Dioxide 33.8 H (21.6-31.8) mmol/L BUN 5.5 L (9.0-27.0) mg/dL Creatinine 0.5 L (0.6-1.5) mg/dL BUN/Creatinine Ratio 11.00 L (12.00-20.00) Ratio Calcium 8.4 L (8.7-10.3) mg/dL Magnesium 1.3 L (1.5-2.4) mg/dL AST 56 H (14-35) U/L Alkaline Phosphatase 128 H (41-126) U/L Albumin 2.9 L (3.8-4.9) g/dL Globulin 3.4 H (1.6-3.3) g/dL Albumin/Globulin Ratio 0.85 L (1.60-3.17) Ratio
--- NOTE | 2023-11-09 15:24 | P.PN ---
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 Patient states that he has been getting progressively weaker over the past few months and today he was not able to walk. Patient states that his used to take care of him but she . Now his brother lives with him and helps to take care of him. Patient states that he has not taken a shower in a long time. He states he changes his ostomy by himself. Patient states that he has not seen a doctor in a long time and he al so does not take any medications. Patient in the ED was found to have a potassium of 3.3, magnesium 0.9. ED ordered 2 g of magnesium sulfate. Patient then referred for admission. Patient worked with physical therapy who are recommending [facility] facility. Patient was also seen by general surgery for prolapse of his colostomy. Surgery is planning on doing surgery on 11/12/2023. Patient seen this morning. He is denying any acute complaints. 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 I ordered for IV magnesium 4 mg once Trend magnesium level History of ostomy with colostomy prolapse Surgery plans to fix the colostomy prolapse on Sunday Mild hypokalemia Patient's potassium this morning is 3.7 Patient has been requiring daily doses of potassium chloride I will start the patient on standing dose of potassium chloride 40 mg daily Trend BMP Alcohol abuse No signs of withdrawal so I will discontinue the CIWA protocol Mildly elevated transaminitis Secondary to alcohol abuse Improving Lower extremity edema I suspect this is due to hypoalbuminemia Encourage patient to eat more Will hold off on any diuretics due to electrolyte abnormalities DVT prophylaxis: Subcu heparin Objective - Vital Signs Vital signs: Vital Signs Temp 98.0 F 11/09/23 13:51 Pulse 91 11/09/23 13:51 Resp 17 11/09/23 13:51 BP 122/78 11/09/23 13:51 Pulse Ox 95 11/09/23 13:51 FiO2 Intake & Output 11/08/23 11/09/23 11/09/23 18:59 06:59 18:59 Intake Total 200 1620 Output Total 400 1250 650 Balance -200 370 -650 Intake: Oral 200 1620 Output: Urine 400 1250 650 Other: Voiding Method Urinal Toilet Toilet Urinal Urinal # Voids 2 2 # Bowel Movements 1 - Labs CBC & Chem 7: 11/09/23 05:42 11/09/23 05:42 Labs: Abnormal Lab Results - Last 24 Hours (Table) 11/09/23 11/09/23 Range/Units 05:42 05:42 RBC 4.22 L (4.40-5.60) X 10*6/uL MCV 100.7 H (80.0-97.0) FL MCHC 30.6 L (32.0-37.0) g/dL RDW 17.5 H (11.5-14.5) % Carbon Dioxide 33.8 H (21.6-31.8) mmol/L BUN 5.5 L (9.0-27.0) mg/dL Creatinine 0.5 L (0.6-1.5) mg/dL BUN/Creatinine Ratio 11.00 L (12.00-20.00) Ratio Calcium 8.4 L (8.7-10.3) mg/dL Magnesium 1.3 L (1.5-2.4) mg/dL AST 56 H (14-35) U/L Alkaline Phosphatase 128 H (41-126) U/L Albumin 2.9 L (3.8-4.9) g/dL Globulin 3.4 H (1.6-3.3) g/dL Albumin/Globulin Ratio 0.85 L (1.60-3.17) Ratio
[2023-11-10] MEDS ORDERED: ONDANSETRON 4 MG/2 ML VIAL IVP PRN (08:03)
[2023-11-10] MEDS ORDERED: HYDROmorphone 0.5 MG/0.5 ML SYRINGE IVP PRN (08:03)
[2023-11-10] MEDS ORDERED: LIDOCAINE 1% (10MG/ML) FOR IV START INTRADERMA PRN (08:03)
[2023-11-10] MEDS: droPERidol 5 MG/2 ML VIAL IVP ONE (08:40)
[2023-11-10] MEDS: DEXAMETHASONE SOD PHOSPHATE 4 MG/ML 1 ML VIAL IV ONE (08:40)
--- NOTE | 2023-11-10 09:44 | P.PN ---
Subjective Progress Note Date: 11/10/23 Principal diagnosis: Ostomy prolapse Patient without complaints today. Denies abdominal pain. No nausea or vomiting. Patient is scheduled for surgery on Sunday however patient states today he will be canceling that because he has lots to do at home. Objective - Vital Signs Vital signs: Vital Signs Temp 98.9 F 11/10/23 07:09 Pulse 94 11/10/23 07:09 Resp 16 11/10/23 07:09 BP 128/79 11/10/23 07:09 Pulse Ox 92 L 11/10/23 07:09 FiO2 Intake & Output 11/09/23 11/10/23 11/10/23 18:59 06:59 18:59 Output Total 650 1550 Balance -650 -1550 Output: Urine 650 1350 Stool 200 Other: Voiding Method Toilet Toilet Urinal Urinal # Voids 6 2 # Bowel Movements 3 1 - Exam Abdomen: Soft, nondistended, ostomy still prolapse, ostomy is viable without ischemic changes noted - Labs CBC & Chem 7: 11/09/23 05:42 11/09/23 05:42 Assessment and Plan (1) Stomal prolapse Narrative/Plan: 63-year-old male with stomal prolapse. Continue regular diet. Patient still scheduled for surgery on Sunday. Encourage patient to discuss this further with Dr. Lombardi on Sunday. Typically this is a well-tolerated surgery without significant comorbidities. Current Visit: Yes Status: Acute Code(s): [id number] - SNOMED Code(s): 477341077
[2023-11-10 10:02] LABS: BUN/Creat Ratio 11.25 Ratio (12.00-20.00); Blood Urea Nitrogen 4.5 mg/dL (9.0-27.0); Calcium 8.3 mg/dL (8.7-10.3); Carbon Dioxide 32.4 mmol/L (21.6-31.8); Chloride 100 mmol/L (96-109); Glucose 80 mg/dL (70-110); Magnesium 1.3 mg/dL (1.5-2.4); Sodium 140 mmol/L (135-145)
[2023-11-10] MEDS: LACTATED RINGERS 1,000 ML IV SCH (10:07)
[2023-11-10 11:36] LABS: Basophils # (A) 0.04 X 10*3/uL (0.00-0.10); Basophils % (A) 0.6 %; Eosinophils # (A) 0.29 X 10*3/uL (0.04-0.35); Eosinophils % (A) 4.2 %; HCT 37.6 % (39.6-50.0); HGB 11.8 g/dL (13.0-17.0); Lymphocytes # (A) 2.08 X 10*3/uL (0.90-5.00); Lymphocytes % (A) 30.3 %; MCH 31.1 pg (27.0-32.0); MCHC 31.4 g/dL (32.0-37.0); MCV 98.9 FL (80.0-97.0); Mean Platelet Volume 11.1 FL (9.5-12.2); Monocytes # (A) 0.52 X 10*3/uL (0.20-1.00); Monocytes % (A) 7.6 %; NRBC Per 100 WBC 0 X 10*3/uL (0.00-0.01); Neutrophils # (A) 3.92 X 10*3/uL (1.80-7.70); Neutrophils % (A) 57.2 %; Platelet Count 125 X 10*3/uL (140-440); RDW 17.2 % (11.5-14.5); WBC 6.86 X 10*3/uL (4.50-10.00)
--- NOTE | 2023-11-10 16:58 | P.PN ---
Subjective Progress Note Date: 11/10/23 Patient is a 64-year-old male with a history of an ostomy alcohol abuse admitted with weakness. Patient was initially noted to have a potassium of 3.3 and a magnesium of 0.9. The patient has been working with physical therapy who recommended correction facility. Patient is also being followed by general surgery for prolapse of his ostomy. There is plan for surgery on 11/12/2023. Objective - Vital Signs Vital signs: Vital Signs Temp 98.8 F 11/10/23 13:25 Pulse 105 H 11/10/23 13:25 Resp 16 11/10/23 13:25 BP 115/74 11/10/23 13:25 Pulse Ox 90 L 11/10/23 13:25 FiO2 Intake & Output 11/09/23 11/10/23 11/10/23 18:59 06:59 18:59 Output Total 650 1550 Balance -650 -1550 Output: Urine 650 1350 Stool 200 Other: Voiding Method Toilet Toilet Urinal Urinal # Voids 6 2 # Bowel Movements 3 1 - Constitutional General appearance: Present: no acute distress - Respiratory Respiratory: bilateral: CTA - Cardiovascular Rhythm: regular - Gastrointestinal General gastrointestinal: Present: normal bowel sounds - Integumentary Integumentary: Present: normal - Labs CBC & Chem 7: 11/10/23 05:37 11/10/23 05:37 Labs: Abnormal Lab Results - Last 24 Hours (Table) 11/10/23 11/10/23 Range/Units 05:37 05:37 RBC 3.80 L (4.40-5.60) X 10*6/uL Hgb 11.8 L (13.0-17.0) g/dL Hct 37.6 L (39.6-50.0) % MCV 98.9 H (80.0-97.0) FL MCHC 31.4 L (32.0-37.0) g/dL RDW 17.2 H (11.5-14.5) % Plt Count 125 L (140-440) X 10*3/uL Carbon Dioxide 32.4 H (21.6-31.8) mmol/L BUN 4.5 L (9.0-27.0) mg/dL Creatinine 0.4 L (0.6-1.5) mg/dL BUN/Creatinine Ratio 11.25 L (12.00-20.00) Ratio Calcium 8.3 L (8.7-10.3) mg/dL Magnesium 1.3 L (1.5-2.4) mg/dL Assessment and Plan (1) Weakness Narrative/Plan: Patient needs placement continue to monitor electrolytes. Patient will monitor for alcohol withdrawal. CIWA protocol was discontinued because patient was not having any evidence of withdrawal. Current Visit: Yes Status: Acute Code(s): R53.1 - WEAKNESS SNOMED Code(s): 11459690 (2) Stomal prolapse Narrative/Plan: Plan for surgery, appreciate input Current Visit: Yes Status: Acute Code(s): XDD4811 - SNOMED Code(s): 235 370345
--- NOTE | 2023-11-11 09:57 | P.PN ---
Subjective Progress Note Date: 11/11/23 Principal diagnosis: Ostomy prolapse Patient without new complaints. Complaining of some cough and sputum production. Denies abdominal pain. No nausea or vomiting. Objective - Vital Signs Vital signs: Vital Signs Temp 98.6 F 11/11/23 08:00 Pulse 92 11/11/23 08:00 Resp 17 11/11/23 08:00 BP 129/78 11/11/23 08:00 Pulse Ox 92 L 11/11/23 08:00 FiO2 Intake & Output 11/10/23 11/11/23 11/11/23 18:59 06:59 18:59 Output Total 650 Balance -650 Output: Urine 400 Stool 250 Other: Voiding Method Toilet Urinal # Voids 4 - Exam Left-sided stomal prolapse present, bowel viable - Labs CBC & Chem 7: 11/10/23 05:37 11/10/23 05:37 Labs: Abnormal Lab Results - Last 24 Hours (Table) 11/10/23 11/10/23 Range/Units 05:37 05:37 RBC 3.80 L (4.40-5.60) X 10*6/uL Hgb 11.8 L (13.0-17.0) g/dL Hct 37.6 L (39.6-50.0) % MCV 98.9 H (80.0-97.0) FL MCHC 31.4 L (32.0-37.0) g/dL RDW 17.2 H (11.5-14.5) % Plt Count 125 L (140-440) X 10*3/uL Carbon Dioxide 32.4 H (21.6-31.8) mmol/L BUN 4.5 L (9.0-27.0) mg/dL Creatinine 0.4 L (0.6-1.5) mg/dL BUN/Creatinine Ratio 11.25 L (12.00-20.00) Ratio Calcium 8.3 L (8.7-10.3) mg/dL Magnesium 1.3 L (1.5-2.4) mg/dL Assessment and Plan (1) Stomal prolapse Narrative/Plan: Patient without significant changes. Continues to state he is not interested in surgery at this time. He will discuss this further with Dr. Shay tomorrow. Current Visit: Yes Status: Acute Code(s): [id number] - SNOMED Code(s): 085235408
[2023-11-11 10:12] LABS: Blood Urea Nitrogen 3.5 mg/dL (9.0-27.0); Calcium 8.2 mg/dL (8.7-10.3); Carbon Dioxide 35.9 mmol/L (21.6-31.8); Chloride 98 mmol/L (96-109); Glucose 63 mg/dL (70-110); Potassium 4.3 mmol/L (3.5-5.5); Sodium 140 mmol/L (135-145)
--- NOTE | 2023-11-11 17:19 | P.PN ---
Subjective Progress Note Date: 11/11/23 (delayed charting seen at 1015) Patient seen and examined at bedside. Denies any complaints currently. Wants to talk to [facility] tomorrow unsure if wants to proceed with surgery. Denies any abdominal pain. Vital signs reviewed General: Nontoxic, no distress, appears at stated age Cardiovascular: S1S2 reg, no murmur Lungs: CTA bilateral, no rhonchi, no rales, no accessory muscle use Abdominal: Soft, nontender to palpation, no guarding Ext: No gross muscle atrophy, 2+ edema bilateral lower extremities, no contractures Neuro: CN II-XI grossly intact, no focal neuro deficits Psych: Alert, oriented, withdrawn Assessment/Plan: Bilateral lower extremity weakness secondary to hypomagnesemia and debility Lower extremity edema due to lower protein levels -Chronic alcohol use -Magnesium 4 g IV piggyback today -Repeat magnesium level in a.m. -Physical therapy, improving. Stomal - Await fruther surgery recs Transaminitis, stable on mild -Repeat CMP in a.m. Hypokalemia, resolved Imaging: None new Data Review: Labs reviewed today include BMP and magnesium which are remarkable for magnesium level of 1 and glucose level of 63. DVT prophylaxis: Lovenox Anticipated discharge date: Pending clinical course This dictation was prepared using [employer] voice recognition software. Though every attempt is made to correct errors during dictation some may still exist. Objective - Vital Signs Vital signs: Vital Signs Temp 98.4 F 11/11/23 14:00 Pulse 67 11/11/23 14:00 Resp 17 11/11/23 14:00 BP 130/67 11/11/23 14:00 Pulse Ox 94 L 11/11/23 14:00 FiO2 Intake & Output 11/10/23 11/11/23 11/11/23 18:59 06:59 18:59 Output Total 650 450 Balance -650 -450 Output: Urine 400 250 Stool 250 200 Other: Voiding Method Toilet Urinal # Voids 4 - Labs CBC & Chem 7: 11/10/23 05:37 11/11/23 02:43 Labs: Abnormal Lab Results - Last 24 Hours (Table) 11/11/23 11/11/23 Range/Units 02:43 02:43 Carbon Dioxide 35.9 H (21.6-31.8) mmol/L BUN 3.5 L (9.0-27.0) mg/dL Creatinine 0.5 L (0.6-1.5) mg/dL BUN/Creatinine Ratio 7.00 L (12.00-20.00) Ratio Glucose 63 L (70-110) mg/dL Calcium 8.2 L (8.7-10.3) mg/dL Magnesium 1.0 L (1.5-2.4) mg/dL
[2023-11-11] MEDS: MAGNESIUM SULFATE-D5W PMX 1 GM in DEXTROSE/WATER 1 100ML.BAG IVPB SCH (18:26)
[2023-11-12 04:34] LABS: ALT 21 U/L (4-49); AST 57 U/L (17-59); African American GFR (CKD) >90 (>60 ml/min/1.73 sqM); Albumin 2.6 g/dL (3.5-5.0); Albumin/Globulin Ratio 0.8; Alkaline Phosphatase 128 U/L (38-126); Anion Gap -2 mmol/L; Blood Urea Nitrogen 4 mg/dL (9-20); Calcium 8.6 mg/dL (8.4-10.2); Carbon Dioxide 38 mmol/L (22-30); Chloride 97 mmol/L (98-107); Globulin 3.4 g/dL; Glucose 86 mg/dL (74-99); Magnesium 1.5 mg/dL (1.6-2.3); Non-African American GFR(CKD) >90 (>60 ml/min/1.73 sqM); Sodium 133 mmol/L (137-145); Total Bilirubin 1.5 mg/dL (0.2-1.3)
[2023-11-12] MEDS: MAGNESIUM SULFATE-D5W PMX 1 GM in DEXTROSE/WATER 1 100ML.BAG IVPB SCH (08:06)
--- NOTE | 2023-11-12 12:12 | P.PN ---
Subjective Progress Note Date: 11/12/23 CHIEF COMPLAINT: Weakness and hypomagnesemia. HISTORY OF PRESENT ILLNESS: Surgical service following in regards to prolapsed ostomy. Patient denies any abdominal pain. Ostomy is functioning. Patient is more awake and alert. He reports that his ostomy has been like this for a while. He also is reporting that he does not want any surgery on the ostomy. He just wants to go home. He also reports that he feels his weakness is better and he has been up to walk. Magnesium 1.5 PHYSICAL EXAM: VITAL SIGNS: Reviewed. GENERAL: no acute distress. ABDOMEN: Soft. Nondistended. Nontender. Prolapsed ostomy NEUROLOGIC: Patient is awake alert and orientated ASSESSMENT: 1. Prolapsed ostomy 2. Daily alcohol use 3. Hypomagnesemia PLAN: -Dr. Shay offered revision of colostomy. Patient has declined surgery at this time. Recommend outpatient follow-up -Magnesium being replaced -Resume regular diet Physician Customs Import Specialist note has been reviewed by physician. Signing provider agrees with the documented findings, assessment, and plan of care. Objective - Vital Signs Vital signs: Vital Signs Temp 97.3 F L 11/12/23 07:17 Pulse 86 11/12/23 07:17 Resp 17 11/12/23 07:17 BP 113/74 11/12/23 07:17 Pulse Ox 92 L 11/12/23 11:18 FiO2 Intake & Output 11/11/23 11/12/23 11/12/23 18:59 06:59 18:59 Output Total 450 650 Balance -450 -650 Output: Urine 250 350 Stool 200 300 Other: Voiding Method Urinal # Voids 6 4 # Bowel Movements 4 1 - Labs CBC & Chem 7: 11/10/23 05:37 11/12/23 03:36 Labs: Abnormal Lab Results - Last 24 Hours (Table) 11/11/23 11/12/23 Range/Units 02:43 03:36 Sodium 133 L (137-145) mmol/L Chloride 97 L (98-107) mmol/L Carbon Dioxide 38 H (22-30) mmol/L BUN 4 L (9-20) mg/dL Creatinine 0.42 L (0.66-1.25) mg/dL Magnesium 1.0 L 1.5 L (1.5-2.4) mg/dL Total Bilirubin 1.5 H (0.2-1.3) mg/dL Alkaline Phosphatase 128 H (38-126) U/L Total Protein 6.0 L (6.3-8.2) g/dL Albumin 2.6 L (3.5-5.0) g/dL
[2023-11-12] MEDS ORDERED: IPRATROPIUM-ALBUTEROL 3 ML NEB INHALATION PRN (12:34)
--- NOTE | 2023-11-12 12:54 | P.PN ---
Subjective Progress Note Date: 11/12/23 63-year-old male with a PMH of ostomy that he states he has had since he was a child, long standing history of smoking cigarettes, alcohol abuse drinks 1/5 of vodka every day who presents to the ED because he is not able to walk. Patient states that he has been getting progressively weaker over the past few months and today he was not able to walk. Patient states that his used to take care of him but she . Now his brother lives with him and helps to take care of him. Patient states that he has not taken a shower in a long time. He states he changes his ostomy by himself. Patient states that he has not seen a doctor in a long time and he also does not take any medications. In the ED he underwent extensive evaluation. BP 125/72, HR 102, T 98.4, RR 18, 92% on RA. CBC, Coag panel, CMP significant for MCV 104.8, PT 13, INR 1.2, K 3.3, bicarb 34, Cr 0.51, Ca 8.1, AST 69, alk phos 130, alb 3.0. Lactic acid 1.7. Mag 0.9. UA moderate LE. EKG sinus arrhythmia. Brain CT neg. CXR small left pleural effusion. Patient was admitted for further workup and management. Electrolytes w ere replaced. PT and OT consulted, patient prefers to go home. Evaluated by surgery for prolapsed ostomy, refusing any surgical intervention. 11/11 Patient was seen and examined. No events overnight. He reports some SOB and wheezing. Currently on 3.5L NC. States he takes his wifes oxygen if needed. BMP shows Na 133, Cl 97, bicarb 38, BUN 4, Cr 0.42, T. Bili 1.5, alk phos 128, alb 2.6. Mag 1.5. General: non toxic, no distress, appears at stated age Derm: warm, dry Head: atraumatic, normocephalic, symmetric Eyes: EOMI, no lid lag, anicteric sclera Mouth: no lip lesion, mucus membranes moist Cardiovascular: S1S2 reg, no murmur Lungs: Expiratory wheezing bilateral, no rhonchi, no rales, no accessory muscle use Ext: no gross muscle atrophy, no edema, no contractures Neuro: no focal neuro deficits Psych: Alert, oriented, appropriate affect Based on my assessment of this patient, this patient meets a high complexity level of care. Acute hypoxic respiratory failure secondary to COPD exacerbation: Home O2 performed and patient will need home O2. Start DuoNeb QID scheduled and PRN for SOB/wheezing. Start Prednisone 50 mg PO QD. Outpatient pulmonary evaluation for formal PFTs. Bilateral lower extremity weakness secondary to hypomagnesemia and debility: PT and OT on board. Patient prefers to go home. Fall precautions. Hypomagnesemia: Mag sulfate 2g IV x 1. Lower extremity edema due to lower protein levels Prolapsed Ostomy: Patient refusing surgical intervention. EtOH abuse: Advised to quit. CODE STATUS: FULL CODE. DVT Prophylaxis: Lovenox SQ. GI Prophylaxis: Protonix PO. Designated medical POA if patient is not able to make medical decisions for themselves: I have reviewed the following apple solutions consultant notes: Surgery. I have reviewed the results of the following tests: CMP. Mag. I have ordered the following tests: CXR. I have discussed the care of this patient with the following independent historian: RN. Case management. I have independently interpreted the following test below: I have discussed the management of this patient with the following physician: Objective - Vital Signs Vital signs: Vital Signs Temp 97.3 F L 11/12/23 07:17 Pulse 86 11/12/23 07:17 Resp 17 11/12/23 07:17 BP 113/74 11/12/23 07:17 Pulse Ox 92 L 11/12/23 11:18 FiO2 Intake & Output 11/11/23 11/12/23 11/12/23 18:59 06:59 18:59 Output Total 450 650 Balance -450 -650 Output: Urine 250 350 Stool 200 300 Other: Voiding Method Urinal # Voids 6 4 # Bowel Movements 4 1 - Labs CBC & Chem 7: 11/10/23 05:37 11/12/23 03:36 Labs: Abnormal Lab Results - Last 24 Hours (Table) 11/11/23 11/12/23 Range/Units 02:43 03:36 Sodium 133 L (137-145) mmol/L Chloride 97 L (98-107) mmol/L Carbon Dioxide 38 H (22-30) mmol/L BUN 4 L (9-20) mg/dL Creatinine 0.42 L (0.66-1.25) mg/dL Magnesium 1.0 L 1.5 L (1.5-2.4) mg/dL Total Bilirubin 1.5 H (0.2-1.3) mg/dL Alkaline Phosphatase 128 H (38-126) U/L Total Protein 6.0 L (6.3-8.2) g/dL Albumin 2.6 L (3.5-5.0) g/dL
[2023-11-12] MEDS ORDERED: MAGNESIUM SULFATE-D5W PMX 1 GM in DEXTROSE/WATER 1 100ML.BAG IVPB SCH (13:00)
[2023-11-12] MEDS: predniSONE 50 MG TAB PO SCH (13:07)
[2023-11-12] MEDS: IPRATROPIUM-ALBUTEROL 3 ML NEB INHALATION SCH (16:00)
[2023-11-12] MEDS: IPRATROPIUM-ALBUTEROL 3 ML NEB INHALATION STA (16:00)
--- NOTE | 2023-11-12 16:20 | XR ---
EXAMINATION TYPE: XR chest 1V portable DATE OF EXAM: 11/12/2023 COMPARISON: 11/06/2023 HISTORY: Shortness of breath TECHNIQUE: Single frontal view of the chest is obtained. FINDINGS: Left lower lobe opacification significantly increased compared to the prior study likely i ndicating increasing pleural effusion and possibly left lower lobe pneumonia or atelectasis. New part ially consolidated infiltrate in the right medial lung base suspicious for pneumonia. Small amount of fluid in the minor fissure. There is no pneumothorax. The pulmonary vasculature does not appear congested. The osseous structures are intact IMPRESSION: Worsening acute cardiopulmonary disease involving both lung bases, left greater than right as describ ed above. [facility], , 11/12/2023 4:18 PM
[2023-11-12] MEDS: FUROSEMIDE 10 MG/ML 4 ML VIAL IV STA (17:50)
[2023-11-13] MEDS: PANTOPRAZOLE 40 MG TABLET PO SCH (06:38)
[2023-11-13] MEDS: FUROSEMIDE 10 MG/ML 4 ML VIAL IV STA (08:05)
[2023-11-13 09:26] LABS: Anisocytosis Slight; HCT 37.9 % (39.0-53.0); HGB 11.9 gm/dL (13.0-17.5); Hypochromasia Moderate; MCH 31.8 pg (25.0-35.0); MCHC 31.4 g/dL (31.0-37.0); MCV 101.3 fL (80.0-100.0); Macrocytosis Slight; Mean Platelet Volume 10.3; Platelet Count 120 k/uL (150-450); RBC 3.74 m/uL (4.30-5.90); RDW 16.8 % (11.5-15.5); WBC 7.4 k/uL (3.8-10.6)
[2023-11-13 09:43] LABS: African American GFR (CKD) >90 (>60 ml/min/1.73 sqM); Anion Gap 2 mmol/L; Blood Urea Nitrogen 5 mg/dL (9-20); Calcium 8.9 mg/dL (8.4-10.2); Chloride 93 mmol/L (98-107); Glucose 109 mg/dL (74-99); Non-African American GFR(CKD) >90 (>60 ml/min/1.73 sqM); Potassium 3.8 mmol/L (3.5-5.1); Sodium 135 mmol/L (137-145)
[2023-11-13 10:36] LABS: Carbon Dioxide 40 mmol/L (22-30)
[2023-11-13] MEDS ORDERED: MAGNESIUM SULFATE MG 6,000 MG in SODIUM CHLORIDE 0.9% 50 ML IVPB ONE (11:04)
--- NOTE | 2023-11-13 11:20 | P.PN ---
Subjective Progress Note Date: 11/13/23 63-year-old male with a PMH of ostomy that he states he has had since he was a child, long standing history of smoking cigarettes, alcohol abuse drinks 1/5 of vodka every day who presents to the ED because he is not able to walk. Patient states that he has been getting progressively weaker over the past few months and today he was not able to walk. Patient states that his used to take care of him but she . Now his brother lives with him and helps to take care of him. Patient states that he has not taken a shower in a long time. He states he changes his ostomy by himself. Patient states that he has not seen a doctor in a long time and he also does not take any medications. In the ED he underwent extensive evaluation. BP 125/72, HR 102, T 98.4, RR 18, 92% on RA. CBC, Coag panel, CMP significant for MCV 104.8, PT 13, INR 1.2, K 3.3, bicarb 34, Cr 0.51, Ca 8.1, AST 69, alk phos 130, alb 3.0. Lactic acid 1.7. Mag 0.9. UA moderate LE. EKG sinus arrhythmia. Brain CT neg. CXR small left pleural effusion. Patient was admitted for further workup and management. Electrolytes w ere replaced. PT and OT consulted, patient prefers to go home. Evaluated by surgery for prolapsed ostomy, refusing any surgical intervention. Patient was found to be hypoxic requiring 3-4L NC to maintain O2 saturation. Home O2 was obtained 11/11. CXR showed worsening LLL opacification. He was given a DuoNeb treatment and Lasix 40 mg IV x 1. 11/12 Patient was seen and examined. No events overnight. He reports no complaints and would like to go home. Currently on 3L NC desaturating to 89% at bedside. His procal is negative, low concerns for pneumonia. He reports smoking 1.5 PPD x 50 years. Previously prescribed inhalers which he has decided not to use. He was given an additional dose of Lasix 40 mg IV this morning. CBC and BMP shows RBC 3.74, Hg 11.9, Hct 37.9, MCV 101.3, Plt 120, Na 135, Cl 93, bicarb 40, BUN 5, Cr 0.43, glu 109. Mag 1.0. General: non toxic, no distress, appears at stated age Derm: warm, dry Head: atraumatic, normocephalic, symmetric Eyes: EOMI, no lid lag, anicteric sclera Mouth: no lip lesion, mucus membranes moist Cardiovascular: S1S2 reg, no murmur Lungs: Decreased BS bilateral, no rhonchi, no rales, no accessory muscle use Ext: no gross muscle atrophy, no edema, no contractures Neuro: no focal neuro deficits Psych: Alert, oriented, appropriate affect Based on my assessment of this patient, this patient meets a high complexity level of care. Acute hypoxic respiratory failure secondary to COPD exacerbation: Home O2 performed and patient will need home O2. Nebulizer at bedside. DuoNeb QID scheduled and PRN for SOB/wheezing. Prednisone 50 mg PO QD. Outpatient pulmonary evaluation for formal PFTs. Severe hypomagnesemia: Mag sulfate 6g IV x 1. Hypochloremic alkalosis: Worsened with diuresis. No vomiting or diarrhea. Bilateral lower extremity weakness secondary to hypomagnesemia and debility: PT and OT on board. Patient prefers to go home. Fall precautions. Lower extremity edema due to lower protein levels Prolapsed Ostomy: Patient refusing surgical intervention. EtOH abuse: Advised to quit. Plans for discharge home when magnesium is corrected. CODE STATUS: FULL CODE. DVT Prophylaxis: Lovenox SQ. GI Prophylaxis: Protonix PO. Designated medical POA if patient is not able to make medical decisions for themselves: I have reviewed the following weight loss sales consultant notes: I have reviewed the results of the following tests: CBC, BMP. Mag. I have ordered the following tests: BMP, Mag in the AM. I have discussed the care of this patient with the following independent historian: JUAN C. I have independently interpreted the following test below: CXR 11/11 I have discussed the management of this patient with the following physician: Objective - Vital Signs Vital signs: Vital Signs Temp 98.6 F 11/13/23 07:16 Pulse 80 11/13/23 07:16 Resp 18 11/13/23 07:16 BP 149/75 11/13/23 07:16 Pulse Ox 90 L 11/13/23 07:16 FiO2 Intake & Output 11/12/23 11/13/23 11/13/23 18:59 06:59 18:59 Output Total 600 1000 Balance -600 -1000 Output: Urine 400 1000 Stool 200 Other: Voiding Method Urinal # Voids 1 - Labs CBC & Chem 7: 11/13/23 09:02 11/13/23 09:02 Labs: Abnormal Lab Results - Last 24 Hours (Table) 11/13/23 11/13/23 Range/Units 09:02 09:02 RBC 3.74 L (4.30-5.90) m/uL Hgb 11.9 L (13.0-17.5) gm/dL Hct 37.9 L (39.0-53.0) % MCV 101.3 H (80.0-100.0) fL RDW 16.8 H (11.5-15.5) % Plt Count 120 L (150-450) k/uL Sodium 135 L (137-145) mmol/L Chloride 93 L (98-107) mmol/L Carbon Dioxide 40 H (22-30) mmol/L BUN 5 L (9-20) mg/dL Creatinine 0.43 L (0.66-1.25) mg/dL Glucose 109 H (74-99) mg/dL Magnesium 1.0 L (1.6-2.3) mg/dL
[2023-11-13] MEDS: MAGNESIUM SULFATE-D5W PMX 1 GM in DEXTROSE/WATER 1 100ML.BAG IVPB SCH (11:37)
[2023-11-13 13:15] VITALS: BMI 23.7
--- NOTE | 2023-11-13 13:29 | P.PN ---
Subjective Progress Note Date: 11/13/23 CHIEF COMPLAINT: Weakness and hypomagnesemia. HISTORY OF PRESENT ILLNESS: Surgical service following in regards to prolapsed ostomy. Patient denies any abdominal pain. Ostomy is functioning. Patient de clined revision of his colostomy. Magnesium 1.0. Medicine service is correcting magnesium. They are planning discharge when magnesium is corrected PHYSICAL EXAM: VITAL SIGNS: Reviewed. GENERAL: no acute distress. ABDOMEN: Soft. Nondistended. Nontender. Prolapsed ostomy NEUROLOGIC: Patient is awake alert and orientated ASSESSMENT: 1. Prolapsed ostomy 2. Daily alcohol use 3. Hypomagnesemia PLAN: -Dr. Shay offered revision of colostomy. Patient has declined surgery at this time. Recommend outpatient follow-up -Patient can be discharged from surgical standpoint when medically cleared Physician Lotteries Agent note has been reviewed by physician. Signing provider agrees with the documented findings, assessment, and plan of care. Objective - Vital Signs Vital signs: Vital Signs Temp 98.6 F 11/13/23 07:16 Pulse 80 11/13/23 07:16 Resp 18 11/13/23 07:16 BP 149/75 11/13/23 07:16 Pulse Ox 90 L 11/13/23 07:16 FiO2 Intake & Output 11/12/23 11/13/23 11/13/23 18:59 06:59 18:59 Output Total 600 1000 Balance -600 -1000 Weight 81.647 kg Output: Urine 400 1000 Stool 200 Other: Voiding Method Urinal # Voids 1 - Labs CBC & Chem 7: 11/13/23 09:02 11/13/23 09:02 Labs: Abnormal Lab Results - Last 24 Hours (Table) 11/13/23 11/13/23 Range/Units 09:02 09:02 RBC 3.74 L (4.30-5.90) m/uL Hgb 11.9 L (13.0-17.5) gm/dL Hct 37.9 L (39.0-53.0) % MCV 101.3 H (80.0-100.0) fL RDW 16.8 H (11.5-15.5) % Plt Count 120 L (150-450) k/uL Sodium 135 L (137-145) mmol/L Chloride 93 L (98-107) mmol/L Carbon Dioxide 40 H (22-30) mmol/L BUN 5 L (9-20) mg/dL Creatinine 0.43 L (0.66-1.25) mg/dL Glucose 109 H (74-99) mg/dL Magnesium 1.0 L (1.6-2.3) mg/dL
[2023-11-14 02:47] VITALS: RESP 17
[2023-11-14 10:41] LABS: Basophils # (A) 0.02 X 10*3/uL (0.00-0.10); Basophils % (A) 0.3 %; Eosinophils # (A) 0.01 X 10*3/uL (0.04-0.35); Eosinophils % (A) 0.1 %; HCT 37.1 % (39.6-50.0); HGB 11.8 g/dL (13.0-17.0); Lymphocytes # (A) 2.04 X 10*3/uL (0.90-5.00); Lymphocytes % (A) 25.7 %; MCH 31.1 pg (27.0-32.0); MCHC 31.8 g/dL (32.0-37.0); MCV 97.9 FL (80.0-97.0); Mean Platelet Volume 12.3 FL (9.5-12.2); Monocytes # (A) 0.79 X 10*3/uL (0.20-1.00); NRBC Per 100 WBC 0 X 10*3/uL (0.00-0.01); Neutrophils # (A) 5.04 X 10*3/uL (1.80-7.70); Neutrophils % (A) 63.5 %; Platelet Count 128 X 10*3/uL (140-440); RBC 3.79 X 10*6/uL (4.40-5.60); RDW 17.2 % (11.5-14.5); WBC 7.93 X 10*3/uL (4.50-10.00)
[2023-11-14 11:08] LABS: Blood Urea Nitrogen 5.1 mg/dL (9.0-27.0); Carbon Dioxide 37.4 mmol/L (21.6-31.8); Chloride 94 mmol/L (96-109); Glucose 95 mg/dL (70-110); Magnesium 1.7 mg/dL (1.5-2.4); Potassium 3.9 mmol/L (3.5-5.5); Sodium 138 mmol/L (135-145)
[2023-11-14 11:09] LABS: Calcium 8.8 mg/dL (8.7-10.3)
--- NOTE | 2023-11-14 12:25 | P.PN ---
Subjective Progress Note Date: 11/14/23 CHIEF COMPLAINT: Weakness and hypomagnesemia. HISTORY OF PRESENT ILLNESS: Surgical service following in regards to prolapsed ostomy. Patient denies any abdominal pain. Ostomy is functioning. Patient de clined revision of his colostomy. Magnesium up from 1.0-1.7 patient had decreased oxygen level and was tacky with sitting at the edge of bed. Medicine service has ordered an EKG and a CTA of the chest. PHYSICAL EXAM: VITAL SIGNS: Reviewed. GENERAL: no acute distress. ABDOMEN: Soft. Nondistended. Nontender. Prolapsed ostomy NEUROLOGIC: Patient is awake alert and orientated ASSESSMENT: 1. Prolapsed ostomy 2. Daily alcohol use 3. Hypomagnesemia PLAN: -Dr. Shay offered revision of colostomy. Patient has declined surgery at this time. Recommend outpatient follow-up -Patient can be discharged from surgical standpoint when medically cleared Physician Laundry Machine Operator note has been reviewed by physician. Signing provider agrees with the documented findings, assessment, and plan of care. Objective - Vital Signs Vital signs: Vital Signs Temp 98.3 F 11/14/23 07:22 Pulse 106 H 11/14/23 09:15 Resp 17 11/14/23 07:22 BP 104/64 11/14/23 09:09 Pulse Ox 92 L 11/14/23 09:15 FiO2 Intake & Output 11/13/23 11/14/23 11/14/23 18:59 06:59 18:59 Output Total 1000 300 Balance -1000 -300 Weight 81.647 kg Output: Urine 700 300 Stool 300 Other: Voiding Method Urinal Urinal # Voids 1 - Labs CBC & Chem 7: 11/14/23 02:50 11/14/23 02:50 Labs: Abnormal Lab Results - Last 24 Hours (Table) 11/14/23 11/14/23 Range/Units 02:50 02:50 RBC 3.79 L (4.40-5.60) X 10*6/uL Hgb 11.8 L (13.0-17.0) g/dL Hct 37.1 L (39.6-50.0) % MCV 97.9 H (80.0-97.0) FL MCHC 31.8 L (32.0-37.0) g/dL RDW 17.2 H (11.5-14.5) % Plt Count 128 L (140-440) X 10*3/uL MPV 12.3 H (9.5-12.2) FL Eosinophils # 0.01 L (0.04-0.35) X 10*3/uL Chloride 94 L (96-109) mmol/L Carbon Dioxide 37.4 H (21.6-31.8) mmol/L BUN 5.1 L (9.0-27.0) mg/dL Creatinine 0.5 L (0.6-1.5) mg/dL BUN/Creatinine Ratio 10.20 L (12.00-20.00) Ratio
--- NOTE | 2023-11-14 13:18 | CT ---
EXAMINATION TYPE: CT chest angio for PE CT DLP: 415.3 mGycm, Automated exposure control for dose reduction was used. DATE OF EXAM: 11/14/2023 1:04 PM COMPARISON: Chest radiograph 11/12/2023 CLINICAL INDICATION:Male, 63 years old with history of hypoxia; TECHNIQUE/CONTRAST: CTA scan of the thorax is performed with IV Contrast, patient injected with 100 mL of Isovue 370, pul monary embolism protocol. MIP images are created and reviewed. FINDINGS: Pulmonary Artery: There is no evidence for a filling defect within the pulmonary vasculature to sugge st acute pulmonary embolism. The pulmonary artery is of normal size. Lungs/Pleura: Moderate left and small right pleural effusions with partial atelectasis of the right l ower lobe and complete atelectasis of the left lower lobe. No focal consolidation or suspicious pulmo nary nodule or mass. No pneumothorax. Airway: Large airways are patent. Trace secretions within the right mainstem bronchus. Heart: Heart is within normal limits for size.. Trace pericardial effusion. Vasculature: No evidence of aortic aneurysm. Mediastinum: No sizable mediastinal adenopathy. Enlarged right hilar lymph node measuring 1.5 cm. Musculoskeletal: No acute osseous abnormalities. Schmorl's node involving the superior endplate of th e T12 vertebral body. Soft Tissues: Mild bilateral gynecomastia. Lower neck: No significant findings. Upper Abdomen: Right kidney is not visualized within the upper abdomen.. IMPRESSION: 1. No evidence of pulmonary embolism. 2. Moderate left and small right pleural effusions with partial atelectasis of the right lower lobe a nd complete atelectasis of the left lower lobe. 3. Nonspecific enlarged right hilar lymph node. May be reactive. [facility], , 11/14/2023 1:15 PM
[2023-11-14 13:41] VITALS: BP 131/82; PULSE 84; TEMP 98.5
--- NOTE | 2023-11-14 14:50 | P.DS ---
Providers Date of admission: 11/06/23 16:11 Expected date of discharge: 11/14/23 Attending physician: Marshall Lopez Consults: 11/07/23 02:37 Consult Physician Routine Consulting Provider: Armando Shay Consult Reason/Comments: prolapsed ostomy Do you want consulting provider notified?: Yes, Notify in am Primary care physician: Zackary Mack [facility] Course: 63-year-old male with a PMH of ostomy that he states he has had since he was a child, long standing history of smoking cigarettes, alcohol abuse drinks 1/5 of vodka every day who presents to the ED because he is not able to walk. Patient states that he has been getting progressively weaker over the past few months and today he was not able to walk. Patient states that his used to take care of him but she . Now his brother lives with him and helps to take care of him. Patient states that he has not taken a shower in a long time. He states he changes his ostomy by himself. Patient states that he has not seen a doctor in a long time and he also does not take any medications. In the ED he underwent extensive evaluation. BP 125/72, HR 102, T 98.4, RR 18, 92% on RA. CBC, Coag panel, CMP significant for MCV 104.8, PT 13, INR 1.2, K 3.3, bicarb 34, Cr 0.51, Ca 8.1, AST 69, alk phos 130, alb 3.0. Lactic acid 1.7. Mag 0.9. UA moderate LE. EKG sinus arrhythmia. Brain CT neg. CXR small left pleural effusion. Patient was admitted for further workup and management. Electrolytes were replaced. PT and OT consulted, patient prefers to go home. Evaluated by surgery for prolapsed ostomy, refusing any surgical intervention. Patient was found to be hypoxic requiring 3-4L NC to maintain O2 saturation. Home O2 was obtained 11/11. CXR showed worsening LLL opacification. He was given a DuoNeb treatment and Lasix 40 mg IV x 2 doses. Procal was negative, low concerns for pneumonia. 11/13 Patient was seen and examined. He reports no complaints. RN reports patient was without his oxygen this morning O2 sat noted to be 77% which improved to the 90s on 2L NC. CTA chest was ordered which showed no PE, moderate left and small right pleural effusion with partial atelectasis of the RLL and complete atelectasis of the LLL. Patient has no respiratory complaints. Discharge Plan: Plans for discharge home on home oxygen. He has a nebulizer at bedside as well. Prednisone 50 mg PO QD x 2 days (total 5 days). Albuterol NEB PRN, INH PRN and Symbicort INH prescribed. Lasix 40 mg PO QD x 7 days prescribed. KCl 20 meq PO QD + Mag oxide 400 mg PO BID prescribed. He was get an incentive spirometer prior to discharge. Follow up with Pulmonary within 1 week of discharge for formal PFTs and further workup and management. He is advised not to smoke cigarettes around his oxygen. Follow up with PCP within 1-[address] Shay within 1 week of discharge. Patient verbalized understanding of the plan. His prognosis is poor and he is high risk for re-admission. General: non toxic, no distress, appears at stated age Derm: warm, dry Head: atraumatic, normocephalic, symmetric Eyes: EOMI, no lid lag, anicteric sclera Mouth: no lip lesion, mucus membranes moist Cardiovascular: S1S2 reg, no murmur Lungs: Decreased BS bilateral, no rhonchi, no rales, no accessory muscle use Ext: no gross muscle atrophy, no edema, no contractures Neuro: no focal neuro deficits Psych: Alert, oriented, appropriate affect Discharge Diagnosis: Acute hypoxic respiratory failure COPD exacerbation Pleural effusion Atelectasis Severe hypomagnesemia Hypochloremic alkalosis Bilateral lower extremity weakness secondary to hypomagnesemia and debility Lower extremity edema due to lower protein levels Prolapsed Ostomy EtOH abuse This complex discharge took 45 minutes to complete. Patient Condition at Discharge: Fair Plan - Discharge Summary New Discharge Prescriptions: New Magnesium Oxide [Mag-Ox] 400 mg PO BID #60 tab predniSONE 50 mg PO DAILY #2 tab Albuterol Inhaler [Ventolin Hfa Inhaler] 1 puff INHALATION QID PRN #8 gm PRN Reason: Shortness Of Breath Ipratropium-Albuterol Nebulize [Duoneb 0.5 mg-3 mg/3 ml Soln] 3 ml INHALATION RT-QID PRN #120 each PRN Reason: Shortness Of Breath Or Wheezing Potassium Chloride ER [K-Dur 20] 20 meq PO DAILY #30 tab Furosemide [Lasix] 40 mg PO DAILY #7 tablet Pantoprazole [Protonix] 40 mg PO AC-BRKFST #30 tab Budesonide-Formot 160-4.5 Mcg [Symbicort 160-4.5 Mcg Inhaler] 2 puff INHALATION BID #10.2 gm Discharge Medication List Albuterol Inhaler [Ventolin Hfa Inhaler] 1 puff INHALATION QID PRN #8 gm 11/14/23 [Rx] Budesonide-Formot 160-4.5 Mcg [Symbicort 160-4.5 Mcg Inhaler] 2 puff INHALATION BID #10.2 gm 11/14/23 [Rx] Furosemide [Lasix] 40 mg PO DAILY #7 tablet 11/14/23 [Rx] Ipratropium-Albuterol Nebulize [Duoneb 0.5 mg-3 mg/3 ml Soln] 3 ml INHALATION RT-QID PRN #120 each 11/14/23 [Rx] Magnesium Oxide [Mag-Ox] 400 mg PO BID #60 tab 11/14/23 [Rx] Pantoprazole [Protonix] 40 mg PO AC-BRKFST #30 tab 11/14/23 [Rx] Potassium Chloride ER [K-Dur 20] 20 meq PO DAILY #30 tab 11/14/23 [Rx] predniSONE 50 mg PO DAILY #2 tab 11/14/23 [Rx] Follow up Appointment(s)/Referral(s): [facility],Equipment [NON-STAFF] - As Needed (*Call [facility] today to arrange delivery of the oxygen concentrator*) Zackary Eagle MD [Primary Care Provider] - 1-2 days Armando Shay MD [STAFF PHYSICIAN] - 1 Week
== END 2023-11-14 16:33 | disposition home or self-care (01) | DRG 425 ==
LOC: EC 11:34 → 4SSUR 16:10 → OBSVTOIN 16:11 → 4SSUR 16:56
PROVIDERS: ADMIT Student in an Organized Health Care Education/Training Program; ATTEND Student in an Organized Health Care Education/Training Program
DX: E83.42 Hypomagnesemia (principal); K94.09 Other complications of colostomy; J96.01 Acute respiratory failure with hypoxia; J44.1 Chronic obstructive pulmonary disease with (acute) exacerbation; E88.09 Other disorders of plasma-protein metabolism, not elsewhere classified; R62.7 Adult failure to thrive; E87.3 Alkalosis; E87.6 Hypokalemia; E87.8 Other disorders of electrolyte and fluid balance, not elsewhere classified; F10.20 Alcohol dependence, uncomplicated; F17.210 Nicotine dependence, cigarettes, uncomplicated; Z71.6 Tobacco abuse counseling; J98.11 Atelectasis; R53.81 Other malaise; R26.2 Difficulty in walking, not elsewhere classified; R74.01 Elevation of levels of liver transaminase levels; T50.916A Underdosing of multiple unspecified drugs, medicaments and biological substances, initial encounter; Z91.128 Patient's intentional underdosing of medication regimen for other reason; Z63.4 Disappearance and death of family member; Z28.21 Immunization not carried out because of patient refusal; Z53.29 Procedure and treatment not carried out because of patient's decision for other reasons
CPT/HCPCS: 36415; 70450; 71045; 71046; 71275; 80048; 80053; 81001; 83605; 83735; 84100; 84145; 85025; 85027; 85610; 85730; 93005; 94640; 94760; 96365; 96366; 99285